=== PATIENT | male | born 1970 | race Caucasian/White ===

== ENCOUNTER 2024-12-10 08:37 | Inpatient (IN) | payer SELFPAY ==
[~2024-12-10] VITALS: Ht 172.7 cm; Wt 90.0 kg
[2024-12-10 08:42] VITALS: O2SAT 99
[2024-12-10 09:29] LABS: BASOPHILS % 1.2 % (0.0-2.0); EOSINOPHILS % 0.5 % (0.0-5.0); HEMATOCRIT. 44.3 % (42.0-52.0); HEMOGLOBIN. 14.8 g/dL (14.0-18.0); LYMPHOCYTES % 43.2 % (20.0-50.0); MEAN CORPUSCULAR HEMOGLOBIN 30.2 pg (28.0-32.0); MEAN CORPUSCULAR HGB CONC 33.4 g/dL (31.0-37.0); MEAN CORPUSCULAR VOLUME 90.3 fL (80.0-94.0); MEAN PLATELET VOLUME 8.7 fl (7.4-10.4); MONOCYTES % 8.4 % (2.0-8.0); NEUTROPHILS % 46.7 % (40.0-76.0); PLATELET 280 x1000/uL (130-400); RED BLOOD CELL COUNT 4.91 mill/uL (4.7-6.1); RED CELL DISTRIBUTION WIDTH 14.2 % (11.6-14.6); WHITE BLOOD COUNT 11.8 x1000/uL (4.5-11.0)
[2024-12-10 09:54] LABS: CHLORIDE 105 mEq/L (98-107); POTASSIUM 3.8 mEq/L (3.5-5.1); SODIUM 141 mEq/L (136-145)
[2024-12-10 09:55] LABS: CALCIUM 8.4 mg/dL (8.7-10.4); CARBON DIOXIDE 20 mEq/L (21-32)
[2024-12-10 10:00] LABS: CREATININE 0.8 mg/dL (0.6-1.3); GLUCOSE 270 mg/dL (70-105); UREA NITROGEN BLOOD 12 mg/dL (9-23)
[2024-12-10 10:22] LABS: ETHANOL BLOOD 526 mg/dL (<10)
[2024-12-10] MEDS ORDERED: ONDANSETRON HCL 4MG/2ML INJ IV PRN (12:00)
[2024-12-10] MEDS ORDERED: DOCUSATE SODIUM 100MG CAPSULE PO PRN (12:00)
[2024-12-10] MEDS ORDERED: DEXTROSE 50% WATER 50ML SYRINGE IV PRN (12:00)
[2024-12-10] MEDS ORDERED: CLONIDINE 0.1MG TABLET PO PRN (12:00)
[2024-12-10] MEDS ORDERED: ACETAMINOPHEN 325MG TABLET PO PRN ×2 (12:00)
[2024-12-10] MEDS ORDERED: LORAZEPAM 0.5MG TABLET PO PRN (12:00)
[2024-12-10] MEDS ORDERED: GUAIFENESIN 200MG/10ML SUGAR FREE UDC PO PRN (12:00)
[2024-12-10] MEDS ORDERED: IPRATROPIUM/ALBUTEROL 0.5-3(2.5)MG/3ML NEB HHN PRN (12:00)
[2024-12-10] MEDS: BLOOD SUGAR DIAGNOSTIC STRIP TEST SCH (12:39)
[2024-12-10 14:25] LABS: TRIGLYCERIDE 182 mg/dL (0-150)
[2024-12-10 14:26] LABS: LDL CHOLESTEROL 116 mg/dL (5-100)
[2024-12-10 14:27] LABS: ALANINE AMINOTRANSFERASE 88 IU/L (10-49); ALBUMIN 4.4 g/dL (3.2-4.8); ASPARTATE AMINOTRANSFERASE 98 IU/L (<34); BILIRUBIN DIRECT 0.2 mg/dL (<=3.0); BILIRUBIN TOTAL 0.5 mg/dL (0.1-1.0); CHOLESTEROL 172 mg/dL (<200); CREATINE KINASE 325 IU/L (46-171); HDL CHOLESTEROL 60 mg/dL (>55); PROTEIN TOTAL 6.6 g/dL (6.0-8.3)
[2024-12-10 14:29] LABS: T4 FREE 1.04 ng/dL (0.89-1.76)
[2024-12-10] MEDS: MVI, ADULT NO.1 10 ML, FOLIC ACID 1 MG, THIAMINE HCL 100 MG in SODIUM CHLORIDE 0.9% 1,0... IV SCH (15:21)
[2024-12-10 15:45] VITALS: BP 138/85; PULSE 88; RESP 16; TEMP 36.6; O2SAT 99
[2024-12-10] MEDS ORDERED: PANTOPRAZOLE SODIUM 40 MG/VIAL IV SCH (16:45)
[2024-12-10] MEDS: INSULIN LISPRO 100 UNITS/ML SUBCUT SCH (17:05)
== END 2024-12-10 18:20 | disposition left against medical advice (07) | DRG 816 ==
LOC: ER 08:37 → EDBD 11:05 → 5WST 11:05
PROVIDERS: ADMIT Internal Medicine; ATTEND Internal Medicine
DX: T51.0X1A Toxic effect of ethanol, accidental (unintentional), initial encounter (principal); E83.51 Hypocalcemia; F10.129 Alcohol abuse with intoxication, unspecified; E11.65 Type 2 diabetes mellitus with hyperglycemia; Z53.29 Procedure and treatment not carried out because of patient's decision for other reasons; Y90.8 Blood alcohol level of 240 mg/100 ml or more; Z59.00 Homelessness unspecified; Y92.89 Other specified places as the place of occurrence of the external cause
CPT/HCPCS: 36415; 80048; 80061; 80076; 80320; 82550; 82962; 83036; 84439; 84443; 85025; 99285; A4606; J1815; J3411; J3490; J7030; G0480